=== PATIENT | female | born 1980 | race Caucasian/White ===

== ENCOUNTER 2018-06-11 22:53 | Emergency (ER) | payer OTHER ==
[~2018-06-11] VITALS: Ht 154.9 cm; Wt 110.0 kg
[2018-06-11 22:57] VITALS: BP 150/91; PULSE 93; RESP 18; Ht 154.9 cm; Wt 110.0 kg
--- NOTE | 2018-06-11 23:30 | ERD ---
ER Documentation Chief Complaint Chief Complaint pain right 4th finger x 1 week. denies trauma HPI 38-year-old female presents with pain around the right fourth fingernail for the last week which started after manicure. She is slight amount of redness discharge patient has fevers, history of trauma, restricted range of motion weakness. Patient is concerned given her history of diabetes. ROS All systems reviewed and are negative except as per history of present illness. Allergies Allergies: Coded Allergies: No Known Drug Allergies (Verified Allergy, Unknown, 06/11/18) PMhx/Soc Medical and Surgical Hx: pt denies Medical Hx, pt denies Surgical Hx Hx Alcohol Use: No Hx Substance Use: No Hx Tobacco Use: No Smoking Status: Unknown if ever smoked FmHx Family History: No diabetes, No coronary disease, No other Physical Exam Vitals Vital Signs Date Temp Pulse Resp B/P (MAP) Pulse Ox O2 O2 Flow FiO2 Time Delivery Rate 06/11/18 97.6 93 18 150/91 98 22:57 (110) Physical Exam Const: No acute distress Head: Atraumatic Eyes: Normal Conjunctiva ENT: Normal External Ears, Nose and Mouth. Neck: Full range of motion. No meningismus. Resp: Clear to auscultation bilaterally Cardio: Regular rate and rhythm, no murmurs Abd: Soft, non tender, non distended. Normal bowel sounds Skin: No petechiae or rashes Back: No midline or flank tenderness Ext: No cyanosis, or edema. There is slight ingrown fingernail of the right fourth digit medially. Slight surrounding redness without bony tenderness or deformities. Neur: Awake and alert Psych: Normal Mood and Affect Procedures/MDM Presents with an ingrown right fourth fingernail. There is no signs or symptoms to suggest osteomyelitis, fracture, dislocation, tenosynovitis, significant infection. Seizure note-LMX was applied. Wound was cleansed with Betadine. Using scissors and forceps a small ingrown portion of the fingernail was removed. Patient tolerated procedure well and wound was dressed with Neosporin. Patient be discharged home with recommendation for wound care, return precautions for worsening redness, fevers, bleeding or discharge or new worsening symptoms. Departure Diagnosis: Primary Impression: Ingrown nail of right ring finger Additional Impression: Pain of finger Laterality: right Qualified Codes: M79.644 - Pain in right finger(s) Condition: Stable Patient Instructions: Ingrown Toenail, Excised Additional Instructions: Warm soaks at home. Recheck for worsening redness, swelling, new or worsening symptoms. SARAHI JIMÉNEZ MD Jun 11, 2018 23:30
== END 2018-06-12 00:12 | disposition home or self-care (01) ==
LOC: FTE 22:53
DX: L60.0 Ingrowing nail (principal); E11.9 Type 2 diabetes mellitus without complications
CPT/HCPCS: 11765; Z7502